=== PATIENT | female | born 1970 | race African-American/Black ===

== ENCOUNTER 2017-10-01 02:36 | Emergency (ER) | payer BC, SELFPAY | END 2017-10-01 03:55 | disposition home or self-care (01) | LOC: ERS 02:36 | DX: J06.9 Acute upper respiratory infection, unspecified (principal); I10 Essential (primary) hypertension; F41.9 Anxiety disorder, unspecified; F32.9 Major depressive disorder, single episode, unspecified | CPT/HCPCS: 94640; J7620 ==

== ENCOUNTER 2018-10-09 03:37 | Observation (INO) | payer OTHER ==
[2018-10-09] MEDS ORDERED: Nitroglycerin 0.4 MG TAB 1 EACH ONE (04:29)
[2018-10-09] MEDS ORDERED: Aspirin Chewable 81 MG TAB ONE (04:29)
[2018-10-09 04:34] LABS: #Eosinphils 0.1 thou/uL (0.0-0.7); #Lymphocytes 1.6 thou/uL (1.20-3.40); #Monocytes 0.5 thou/uL (0.11-0.59); #Neutrophils 1.7 thou/uL (1.40-6.50); %Basophils 1.2 % (0.0-1.0); %Lymphocytes 40.6 % (21.0-51.0); %Neutrophils 43.3 % (42.0-75.0); Hemoglobin 12.2 g/dL (12.0-16.0); Mean Corpuscular HGB CONC 32.6 g/dL (32.0-36.0); Mean Corpuscular Hemoglobin 32.8 pg (27.0-31.0); Mean Platelet Volume 8.4 fL (7.4-10.4); Platelet Count 215 thou/uL (130-400); RBC Distribution Width 12.1 % (11.5-14.5); Red Blood Cell (RBC) Count 3.73 mill/uL (4.20-5.40); White Blood Cell (WBC) Count 3.9 thou/uL (4.8-10.8)
[2018-10-09] MEDS ORDERED: Ketorolac Tromethamine 30 MG/ML VIAL ONE (04:49)
[2018-10-09 04:52] LABS: ALT (SGPT) 7 U/L (8-55); AST (SGOT) 17 U/L (5-34); Albumin 4.2 g/dL (3.5-5.0); Alkaline Phosphatase 72 U/L (40-150); Anion Gap 12 mmol/L (10-20); BUN (Urea Nitrogen) 15 mg/dL (7.0-18.7); Bilirubin, Total 0.2 mg/dL (0.2-1.2); Calc. Creatinine Clearance 0 mL/min (70-130); Carbon Dioxide 21 mmol/L (22-29); Chloride 109 mmol/L (98-107); Estimated GFR-MDRD Greater than 90; Globulin 2.8 g/dL (2.4-3.5); Glucose 93 mg/dL (70-105); Potassium 4.4 mmol/L (3.5-5.1); Sodium 138 mmol/L (136-145)
--- NOTE | 2018-10-09 07:34 | RAD ---
TWO VIEWS CHEST: Comparison: None. History: Chest pain. Cough. FINDINGS: Two views of the chest show normal sized cardiomediastinal silhouette. There is no evidence of consol idation, mass, or pleural effusion. The bones are unremarkable. IMPRESSION: No evidence of acute cardiopulmonary disease. POS: [facility]
[2018-10-09] MEDS ORDERED: Regadenoson 0.4 MG/5 ML SYRINGE ONE (07:43)
[2018-10-09 07:57] LABS: Troponin I Less than 0.010 ng/mL (< 0.028)
[2018-10-09] MEDS ORDERED: Acetaminophen 650 MG Suppository PR PRN (08:15)
[2018-10-09] MEDS ORDERED: Ondansetron PF 4 MG/2 ML Vial IVP PRN (08:15)
[2018-10-09] MEDS ORDERED: Ondansetron ODT 4 MG TAB PO PRN (08:15)
[2018-10-09] MEDS ORDERED: Acetaminophen 325 MG TAB PO PRN (08:15)
[2018-10-09] MEDS ORDERED: Sodium Chloride 0.9% 1,000 ML IV SCH (08:15)
[2018-10-09 08:36] LABS: Cardiac Risk 2.5 (Less than 4.5); Magnesium 2.5 mg/dL (1.6-2.6)
[2018-10-09] MEDS ORDERED: Aspirin 81 mg Enteric Coated Tablet PO SCH (09:00)
--- NOTE | 2018-10-09 09:03 | HP ---
REASON FOR ADMISSION: Chest pain rule out. HISTORY OF PRESENT ILLNESS AND REVIEW OF SYSTEMS: This is a 48-year-old woman presenting to the ED early hours this morning after waking up from her sleep with severe 10/10 chest pain. The patient states the pain was preceded by a coughing fit, which she has had on and off for the last 2 weeks. She states her cough is usually worse around 3:00 a.m. in the morning, but the pain has not been as severe as it was today. She reports pain radiating to her left arm. Denies any associated diaphoresis, nausea, or vomiting. The patient reports having an intermittent cough for the last 2 weeks, initially productive for green/akhtar sputum. Over the last week, she has been coughing less and it is not productive for yellow sputum. She denies having any fevers or noting any hemoptysis. Denies having any shortness of breath. She states the pain this morning remained constant until she was given Toradol in the ED around 5:00 a.m. Since then, she has had no recurrent chest pain. While in the ED, she underwent laboratory studies, which showed an unremarkable full blood count. Initial troponin was negative. She has had a chest x-ray done that showed no acute changes. She has been scheduled for a stress test. The patient has a background history of hypertension and states her blood pressure is well controlled with verapamil, which she takes at bedtime. She denies any history of heart disease. Denies any trauma. Denies any recent long flights or car rides. Has not had any swelling in the lower legs or calf pain. She has had a very good appetite and denies having any changes with her bowels. Denies any abdominal pain. Denies any urinary symptoms. PAST MEDICAL HISTORY: 1. Migraine headaches. 2. Hypertension. 3. Anxiety. 4. Depression. PAST SURGICAL HISTORY: History of hernia repair. SOCIAL HISTORY: The patient reports drinking socially, but denies smoking or any illicit drug use. ALLERGIES: TRAMADOL, SULFA DRUGS, AND MORPHINE. CURRENT MEDICATIONS: 1. Verapamil 120 mg p.o. at bedtime. 2. Fluoxetine 40 mg p.o. at bedtime. PHYSICAL EXAMINATION: GENERAL: The patient is found resting comfortably on a stretcher. She appears to be in no acute distress. HEENT: Normocephalic and atraumatic. Pupils are equal, round, and reactive to light. Sclerae icterus. Oropharynx is clear. NECK: Supple without lymphadenopathy. Full range of motion. LUNGS: Clear to auscultation bilaterally without any wheezes, rales, or rhonchi. CARDIAC: Regular rate and rhythm without audible murmurs, rubs, or gallops. She does have tenderness to palpation across her upper anterior chest. ABDOMEN: Soft, nontender, nondistended. Normoactive bowel sounds present. No renal angle tenderness. No guarding or rigidity. EXTREMITIES: No clubbing, cyanosis, or edema. No calf tenderness. NEUROLOGIC: Alert and oriented x3. SKIN: Without rash or jaundice. LABORATORY DATA: White blood count 3.9, hemoglobin 12.2, hematocrit 37.6, platelets 215. Sodium 138, potassium 4.4, BUN 15, creatinine 0.79, GFR greater than 90. LFTs unremarkable. Troponin 1 at 4:20 a.m. and 7:22 a.m., both less than 0.010. IMAGING DATA: Chest x-ray done October 09, 2018. No evidence of acute cardiopulmonary disease. Normal size cardiac mediastinal silhouette. ASSESSMENT: Ms. Patel is a very pleasant 48-year-old woman with a background history of hypertension who presents with chest pain associated with a persistent cough for the last 2 weeks. She is being admitted for management of the followin. Chest pain. At present is resolved. However, mild discomfort elicited with palpation to the anterior upper chest. Awaiting third troponin. EKG done in the ED showed normal sinus rhythm with anterior T-wave inversion present on previous EKG done on September 2016. The patient awaiting a stress test. Have requested an echo, fasting lipid panel and BNP. 2. Hypertension. Continue to monitor blood pressure and resume home medication. 3. Cough. The patient has been improving over the last week. No evidence of pneumonia on chest x-ray and the patient is afebrile with a normal white count. She will be given guaifenesin and Tessalon Perles to help with her cough. 4. Diet. The patient has been fasting since 9:00 p.m. last night and will remain n.p.o. until stress test has been completed. Following that, she may resume a heart healthy diet. The patient's case to be discussed with Dr. Harmeet for further recommendations. Job ID: [id number]
[2018-10-09] MEDS ORDERED: PROVENTIL INHALER 6.7 G (200 INHALATIONS) INH PRN (09:45)
[2018-10-09] MEDS ORDERED: Enoxaparin Sodium 40 MG/0.4 ML SYRINGE ONE (09:58)
[2018-10-09] MEDS ORDERED: Famotidine/PF 20 mg/2ml Vial ONE (09:58)
[2018-10-09 10:43] LABS: Troponin I Less than 0.010 ng/mL (< 0.028)
[2018-10-09 10:56] VITALS: BMI 28.6
[2018-10-09] MEDS: Famotidine/PF 20 mg/2ml Vial SLOW IVP SCH ×2 (11:13→20:55)
[2018-10-09] MEDS: Enoxaparin Sodium 40 MG/0.4 ML SYRINGE SC SCH (11:13)
[2018-10-09 13:28] LABS: Pregnancy Test - Urine (BHCG) Negative (Negative); Pregu Control Bar Appear? YES (CONTROL BAR); Specific Gravity 1.014 (1.002-1.036)
[2018-10-09 13:29] LABS: Pregu Control Background? CLEAR/WHITE (CLR/WHITE)
--- NOTE | 2018-10-09 19:18 | NM ---
CARDIAC SPECT: CLINICAL HISTORY: 48-year-old female with chest pain and hypertension. TECHNIQUE: A myocardial perfusion scan was performed using the single isotope one day protocol with technetium-9 9m sestamibi. 10 mCi were injected intravenously for the rest exam followed by 31 mCi for the stress exam. Exercise stress was monitored and interpreted by Dr. Maloney. FINDINGS: Homogeneous tracer distribution is seen in the myocardial segments on stress and rest images without fixed or reversible defects. GATED SPECT LVEF: 66%. WALL MOTION EXAM: Normal. IMPRESSION: Normal myocardial perfusion scan. POS: [facility]
[2018-10-10 04:02] VITALS: TEMP 98.1
[2018-10-10 05:43] LABS: #Eosinphils 0.1 thou/uL (0.0-0.7); #Lymphocytes 1.3 thou/uL (1.20-3.40); #Monocytes 0.4 thou/uL (0.11-0.59); #Neutrophils 1.9 thou/uL (1.40-6.50); %Basophils 1.3 % (0.0-1.0); %Eosinophils 2.1 % (0.0-10.0); %Lymphocytes 35.6 % (21.0-51.0); %Monocytes 9.9 % (0.0-10.0); %Neutrophils 51.1 % (42.0-75.0); Hemoglobin 12.5 g/dL (12.0-16.0); Mean Corpuscular HGB CONC 32.4 g/dL (32.0-36.0); Mean Platelet Volume 8.8 fL (7.4-10.4); Platelet Count 204 thou/uL (130-400); RBC Distribution Width 12.2 % (11.5-14.5); White Blood Cell (WBC) Count 3.6 thou/uL (4.8-10.8)
[2018-10-10 06:04] LABS: ALT (SGPT) 8 U/L (8-55); AST (SGOT) 14 U/L (5-34); Albumin 3.9 g/dL (3.5-5.0); Alkaline Phosphatase 70 U/L (40-150); Anion Gap 11 mmol/L (10-20); BUN (Urea Nitrogen) 13 mg/dL (7.0-18.7); Bilirubin, Total 0.4 mg/dL (0.2-1.2); Calc. Creatinine Clearance 0 mL/min (70-130); Calcium 9.1 mg/dL (7.8-10.44); Carbon Dioxide 23 mmol/L (22-29); Chloride 109 mmol/L (98-107); Estimated GFR-MDRD Greater than 90; Globulin 2.8 g/dL (2.4-3.5); Glucose 86 mg/dL (70-105); Potassium 4.3 mmol/L (3.5-5.1); Protein, Total 6.7 g/dL (6.0-8.3); Sodium 139 mmol/L (136-145)
[2018-10-10 08:05] VITALS: BP 119/86
[2018-10-10] MEDS ORDERED: Aspirin 81 mg Enteric Coated Tablet PO SCH (09:00)
[2018-10-10] MEDS: Enoxaparin Sodium 40 MG/0.4 ML SYRINGE SC SCH (09:30)
[2018-10-10] MEDS: Famotidine/PF 20 mg/2ml Vial SLOW IVP SCH (09:30)
--- NOTE | 2018-10-17 13:10 | STRESS ---
Acquisition Time: 2018-10-09 15:05:44 Total Exercise Time: 00:01:03 Test Indications: CHEST PAIN Medications: Protocol: TEOFILO Max HR: 105 BPM 60% of Pred: 173 BPM Max BP: 134/070 mmHG Max Work Load: 1.0 METS RESTING ECG: SINUS BRADYCARDIA AT 58 BPM WITH NON-SPECIFIC T-WAVE CHANGES AND COMPLETE RIGHT BUNDLE BRANCH BLOCK SYMPTOMS: DYSPNEA NORMAL BP RESPONSE ECTOPY: NONE ECG STRESS: NO SIGNIFICANT CHANGES INTERPRETATION: AWAIT NUCLEAR IMAGES FOR DEFINITIVE DIAGNOSIS Confirmed by ISIS ZAVALA ([id number]), production editor MARGARITO PARR ([id number]) on 10/17/2018 1:09:57 PM Referred By: DO Shankar CHILDS Confirmed By:ISIS ZAVALA
== END 2018-10-10 10:37 | disposition home or self-care (01) ==
LOC: ERS 03:37 → ERHOLD 07:01 → 2SW 10:27
PROVIDERS: ADMIT Hospitalist; ATTEND Hospitalist
DX: R07.9 Chest pain, unspecified (principal); I10 Essential (primary) hypertension; F41.9 Anxiety disorder, unspecified; F32.9 Major depressive disorder, single episode, unspecified; G43.909 Migraine, unspecified, not intractable, without status migrainosus; R05 Cough; Z79.899 Other long term (current) drug therapy; Z88.2 Allergy status to sulfonamides; Z88.5 Allergy status to narcotic agent
CPT/HCPCS: 36415; 71046; 78452; 80053; 80061; 81025; 83735; 83880; 84443; 84484; 85025; 93005; 93017; 93306; 94760; 96372; 96374; 96375; 96376; A9500; G0378; J1650; J1885; J2785; Q0162; S0028

== ENCOUNTER 2019-10-21 18:50 | Emergency (ER) | payer OTHER ==
[2019-10-21] MEDS ORDERED: Ketorolac Tromethamine 30 MG/ML VIAL ONE (19:33)
--- NOTE | 2019-10-21 20:21 | RAD ---
3 views left shoulder: 10/21/2019 COMPARISON: None HISTORY: Pain, trauma FINDINGS: No fracture or dislocation. No radiopaque foreign body or subcutaneous gas. IMPRESSION: No acute findings.
--- NOTE | 2019-10-21 20:41 | CT ---
CT of thecervical spine: 10/21/2019 COMPARISON:None available HISTORY:Trauma, pain TECHNIQUE: Serial axial CT imaging at2.5 mm intervals from theskull base through lung apices without contrast. Coronal and sagittal reformatted imaging obtained Findings:C1 ring is intact. The occipital condyles, the dens, the C1-2 articulation, the craniocervic al junction, the atlantoaxial interspace, and the cervicothoracic junction demonstrate no acute findings. There is osseous fusion at the intervertebral disc and facet joint level at T1-2. There is disc space narrowing with anterior osteophyte formation at C4-5 and C5-6. No prevertebral so ft tissue swelling, displaced fracture, or evidence of dislocation is seen. Impression:No acute osseous abnormality.
--- NOTE | 2019-10-21 20:46 | CT ---
CT of thethoracic spine: 10/21/2019 COMPARISON:None available HISTORY:Injury, trauma, pain TECHNIQUE: Serial axial CT imaging at3.75 mm from thethoracic inlet through upper lumbar spine withou t contrast. Coronal and sagittal reformatted imaging obtained Findings:There is fusion at the intervertebral disc and facet joint level at the T1-2 level. Thoracic vertebral body height and alignment appears unremarkable. Mild mid thoracic spine multilevel disc space narrowing. No acute fracture or evidence of dislocation. Partially imaged lung parenchyma appea rs grossly unremarkable. Impression:No acute fracture.
== END 2019-10-21 21:10 | disposition home or self-care (01) ==
LOC: ERS 18:50
DX: S16.1XXA Strain of muscle, fascia and tendon at neck level, initial encounter (principal); M25.512 Pain in left shoulder; M54.6 Pain in thoracic spine; F41.9 Anxiety disorder, unspecified; F32.9 Major depressive disorder, single episode, unspecified; G43.909 Migraine, unspecified, not intractable, without status migrainosus; I10 Essential (primary) hypertension; V43.52XA Car driver injured in collision with other type car in traffic accident, initial encounter
CPT/HCPCS: 72125; 72128; 96372; J1885; L0120

== ENCOUNTER 2021-10-26 10:36 | Observation (INO) | payer OTHER ==
[2021-10-26] MEDS ORDERED: Fentanyl 100 MCG/2 ML VIAL ONE (11:15)
[2021-10-26 11:39] LABS: ALT (SGPT) 15 U/L (8-55); AST (SGOT) 20 U/L (5-34); Albumin 4.4 g/dL (3.5-5.0); Alkaline Phosphatase 79 U/L (40-110); Anion Gap 13 mmol/L (10-20); BUN (Urea Nitrogen) 18 mg/dL (7.0-18.7); Bilirubin, Total 0.3 mg/dL (0.2-1.2); Calc. Creatinine Clearance 0 mL/min (70-130); Calcium 9.3 mg/dL (7.8-10.44); Carbon Dioxide 22 mmol/L (22-29); Chloride 107 mmol/L (98-107); Glucose 95 mg/dL (70-105); Lipase 12 U/L (8-78); Potassium 4.2 mmol/L (3.5-5.1); Protein, Total 7.4 g/dL (6.0-8.3); Sodium 138 mmol/L (136-145)
[2021-10-26 11:40] LABS: #Eosinphils 0.1 thou/uL (0.0-0.7); #Lymphocytes 1.2 thou/uL (1.20-3.40); #Monocytes 0.3 thou/uL (0.11-0.59); #Neutrophils 1.7 thou/uL (1.40-6.50); %Basophils 0.4 % (0.0-1.0); %Eosinophils 3.9 % (0.0-10.0); %Lymphocytes 35.3 % (21.0-51.0); %Monocytes 10.1 % (0.0-10.0); %Neutrophils 50.4 % (42.0-75.0); Hemoglobin 12.4 g/dL (12.0-16.0); Mean Corpuscular HGB CONC 32.5 g/dL (32.0-36.0); Mean Corpuscular Hemoglobin 32.7 pg (27.0-31.0); Mean Platelet Volume 8.6 fL (7.4-10.4); Platelet Count 201 thou/uL (130-400); RBC Distribution Width 12.1 % (11.5-14.5); Red Blood Cell (RBC) Count 3.78 mill/uL (4.20-5.40); White Blood Cell (WBC) Count 3.4 thou/uL (4.8-10.8)
[2021-10-26] MEDS ORDERED: Acetaminophen 325 MG TAB PO PRN (13:19)
[2021-10-26] MEDS ORDERED: Nitroglycerin 0.4 MG TAB (25 Tab Bottle) SL PRN (13:19)
[2021-10-26] MEDS ORDERED: Metoclopramide HCl 10 MG/2 ML VIAL IVP PRN (13:30)
[2021-10-26 15:01] LABS: SARS-CoV-2 NAA Rapid Test Not Detected (NotDetected)
[2021-10-26 15:42] LABS: Troponin I Less than 0.010 ng/mL (< 0.028)
[2021-10-26 16:32] VITALS: BMI 31.3
[2021-10-26 18:11] LABS: Troponin I Less than 0.010 ng/mL (< 0.028)
[2021-10-26] MEDS ORDERED: Albuterol 200 PUFF (6.7GM INHALER) INH PRN (18:48)
[2021-10-26 20:44] VITALS: TEMP 97.7
[2021-10-26] MEDS ORDERED: FLUoxetine HCl 10 MG CAP PO SCH (21:00)
[2021-10-26] MEDS ORDERED: FLUoxetine HCl 20 MG CAP PO SCH (21:00)
[2021-10-26] MEDS ORDERED: Meloxicam 15 MG TAB PO SCH (21:00)
[2021-10-27 05:44] LABS: Cardiac Risk 2.6 (Less than 4.5)
[2021-10-27] MEDS ORDERED: Aspirin 325 mg Enteric Coated Tablet PO SCH (09:00)
[2021-10-27 12:47] VITALS: BP 127/93
== END 2021-10-27 14:35 | disposition home or self-care (01) ==
LOC: ERS 10:36 → ERHOLD 12:46 → 2SW 15:02
PROVIDERS: ADMIT Family Medicine; ATTEND Internal Medicine
DX: R07.89 Other chest pain (principal); F41.9 Anxiety disorder, unspecified; F32.9 Major depressive disorder, single episode, unspecified; K21.9 Gastro-esophageal reflux disease without esophagitis; I10 Essential (primary) hypertension; M77.51 Other enthesopathy of right foot and ankle; R94.31 Abnormal electrocardiogram [ECG] [EKG]; Z79.1 Long term (current) use of non-steroidal anti-inflammatories (NSAID); Z79.899 Other long term (current) drug therapy; Z88.2 Allergy status to sulfonamides; Z88.5 Allergy status to narcotic agent; Z20.822 Contact with and (suspected) exposure to COVID-19
CPT/HCPCS: 36415; 71045; 78452; 80053; 80061; 83690; 84484; 85025; 93005; 93010; 93017; 94760; 96374; A9500; G0378; J3010; U0002

== ENCOUNTER 2022-01-18 06:45 | Outpatient (CLI) | payer OTHER | END 2022-01-18 06:46 | disposition home or self-care (01) | LOC: BICULT 06:45 | PROVIDERS: ATTEND Family Medicine | DX: N93.9 Abnormal uterine and vaginal bleeding, unspecified (principal) | CPT/HCPCS: 76856 ==

== ENCOUNTER 2022-02-21 11:53 | Outpatient (CLI) | payer OTHER | END 2022-02-21 11:54 | disposition home or self-care (01) | LOC: BICMAMMO 11:53 | PROVIDERS: ATTEND Family Medicine | DX: Z12.31 Encounter for screening mammogram for malignant neoplasm of breast (principal); Z80.3 Family history of malignant neoplasm of breast | CPT/HCPCS: 77063; 77067 ==

== ENCOUNTER 2023-10-11 06:58 | Emergency (ER) | payer OTHER ==
[2023-10-11] MEDS ORDERED: fentaNYL 50 mcg/mL 1 mL Vial ONE (07:59)
[2023-10-11] MEDS ORDERED: Iopamidol-370 76% 500 ML MDV (1 ML CHARGE) ONE (14:46)
== END 2023-10-11 08:40 | disposition home or self-care (01) ==
LOC: ERS 06:58
DX: M54.6 Pain in thoracic spine (principal); I10 Essential (primary) hypertension; V29.99XA Rider (driver) (passenger) of other motorcycle injured in unspecified traffic accident, initial encounter
CPT/HCPCS: 70450; 71260; 72125; 74177; 96374; J3010; Q9967